=== PATIENT | female | born 1995 | race Caucasian/White ===

== ENCOUNTER 2021-11-04 15:34 | Outpatient (CLI) | payer OTHER, SELFPAY ==
--- NOTE | ~2021-11-04 | US_ITS ---
EXAMINATION: US OB <= 14 weeks fetus INDICATION: UNCERTAIN DATES TECHNIQUE: Sonography of the pelvis was performed by transabdominal techniques. COMPARISON: None. RESULT: Uterus: - Orientation: Anteverted - Size: #9 x 7.5 x 6.8 cm - Myometrium: homogeneous echogenicity Gestation: - Intrauterine gestational sac: Single present - Mean Sac Diameter: 4.56 cm, corresponding gestational age 10 week 1 days - Yolk sac: Not visualized - Embryo: Single present - [place] rump length: 4.16 cm, corresponding gestational age 11 weeks, 0 days -Gestational heart rate: present 167 bpm -Subgestational hematoma: Absent Right ovary: - Size : 2.2 x 1.7 x 1.4 cm - Normal sonographic appearance with physiologic follicles. Left ovary: -Not visualized Pelvis free fluid: None. IMPRESSION: Single, live intrauterine gestation. Estimated Gestational Age: 11 weeks, 0 days by crown rump length. Reviewed, dictated and finalized at location K.
== END 2021-11-04 15:35 | disposition home or self-care (01) ==
PROVIDERS: PCP Family Medicine; Visit Provider Obstetrics & Gynecology Gynecology
DX: Z36.87 Encounter for antenatal screening for uncertain dates (principal); Z3A.11 11 weeks gestation of pregnancy
CPT/HCPCS: 76801

== ENCOUNTER 2022-01-02 11:02 | Outpatient (CLI) | payer OTHER, SELFPAY ==
--- NOTE | ~2022-01-02 | US_ITS ---
US OB /maternal detail DATE: 01/02/2022 14:05 INDICATION: anatomy screen TECHNIQUE: Real-time imaging and Doppler analysis COMPARISON: 11/04/2021 obstetrical ultrasound FINDINGS: Live pickard intrauterine gestation, fetus in longitudinal lie, vertex presentation. Posterior placenta with lower margin 7.5 cm above the internal os. Subjectively normal amount of amni otic fluid. No cerebral ventriculomegaly. upper lip appears normal. cerebellum and cisterna mag na are normal. Normal nuchal fold. No abnormality of the spine is identified. Four-chamber heart with normal left and right ventricular outflow tracts. heart rate of 1 41 bpm. Three-vessel umbilical cord with normal insertion at the abdominal wall. The diaphragm is intact. Fluid is demonstrated in the stomach and urinary bladder. No hydronephrosis. Fet al extremities are unremarkable. Biparietal diameter 4.50 cm; 19 weeks 4 days Head circumference 16.89 cm; 19 weeks 4 days Abdominal circumference 13.94 cm; 18 weeks 2 days Femur length 2.93 cm; 19 weeks Composite age by Hadlock) is 19 weeks 3 days +/- 1 week 2 days, with CARMEN of 05/26/2022 Estimated weight is 281.7 +/- 42.2 g Estimated weight-GP: 27.5% Head circumference/abdominal plumbing mechanic was 1.21, within normal range of 1.08-1.26 Femur length/head circumference 17.37, within normal range of 16.40-18.94 IMPRESSION: Estimated gestational age of 19 weeks 3 days +/- 1 week 2 days, with CARMEN of 05/26/2022 Reviewed, dictated and finalized at Location A. Reviewed, dictated and finalized at location A. IMPRESSION: Estimated gestational age of 19 weeks 3 days +/- 1 week 2 days, wit h CARMEN of 05/26/2022
== END 2022-01-02 11:03 | disposition home or self-care (01) ==
PROVIDERS: PCP Family Medicine; Visit Provider Advanced Practice Midwife
DX: Z36.9 Encounter for antenatal screening, unspecified (principal); Z3A.19 19 weeks gestation of pregnancy
CPT/HCPCS: 76805

== ENCOUNTER → 2022-03-06 13:58 | Outpatient (CLI) | payer BC, SELFPAY ==
--- NOTE | ~2022-03-06 | US_ITS ---
EXAMINATION: US OB follow up DATE: 03/06/2022 14:39 INDICATION: Incomplete anatomic survey, third trimester TECHNIQUE: Real-time ultrasound of the pelvis was performed. The interpreting radiologist was not pre sent for the study. COMPARISON: 01/02/2022 FINDINGS: There is a single living fetus in vertex presentation. The placenta is posterior. car diac activity and movement are noted. heart rate is 172 beats per minute (bpm). The amnio tic fluid index is 15.7 cm which is normal (normal range: 9.4 cm to 21.9 cm). The kidneys are u nremarkable. The following biometric data were obtained: Biparietal diameter (BPD): 7.4 cm; head circumference (HC): 26.9 cm; abdominal circumference (AC): 24 cm; femur length (FL): 5.3 cm. These measurements are concordant. Estimated weight is 1217 g +/- 182 g, which correlates with the 30th percentile when 05/25/2022 is used as estimated date of delivery. As single measurements, these parameters are each equal to the following estimated gestational ages w ith ranges of +/- 2 standard deviations: BPD: 29 weeks 4 days ( 27 weeks 2 days - 31 weeks 5 days). HC: 29 weeks 2 days ( 27 weeks 2 days - 31 weeks 3 days). AC: 28 weeks 2 days ( 26 weeks 1 days - 30 weeks 3 days). FL: 28 weeks 0 days ( 26 weeks 0 days - 30 weeks 1 days). estimated gestational age based solely on measurements from this exam is 28 weeks 6 days +/- 2 weeks 0 days. IMPRESSION: 1. Single living fetus in vertex presentation. 2. Normal-appearing kidneys. 3. Estimated weight is 1217 g +/- 182 g, which correlates with the 30th percentile when 05/25/20 22 is used as estimated date of delivery. Reviewed, dictated and finalized at location A. IMPRESSION: 1. Single living fetus in vertex presentation. 2. Normal-appearing kidneys. 3. Estimated weight is 1217 g +/- 182 g, which correlates with the 30th p ercentile when 05/25/2022 is used as estimated date of delivery.
== END ==
PROVIDERS: PCP Obstetrics & Gynecology Gynecology; Visit Provider Obstetrics & Gynecology Gynecology
DX: Z36.2 Encounter for other antenatal screening follow-up (principal)
CPT/HCPCS: 76816

== ENCOUNTER → 2022-03-16 12:57 | Outpatient (CLI) | payer BC, SELFPAY ==
--- NOTE | ~2022-03-16 | US_ITS ---
EXAMINATION: US OB follow up, US umbilical doppler DATE: 03/17/2022 16:07 INDICATION: Third trimester post-COVID . Cholestasis. TECHNIQUE: Real-time ultrasound of the pelvis was performed. The interpreting radiologist was not pre sent for the study. COMPARISON: 03/06/2022 FINDINGS: There is a single living fetus in vertex presentation. The placenta is posterior. heart rate i s 140 beats per minute (bpm). The amniotic fluid index is 16.6 cm, which is normal (5th%-95%: 9.0-2 3.4 cm at 30 weeks estimated gestational age). The following biometric data were obtained: BPD: 7.8 cm -> 31 weeks 1 days Head circumference: 28.5 cm -> 31 weeks 2 days Abdominal circumference: 27.0 cm -> 31 weeks 1 days Femur length: 5.7 cm -> 30 weeks 0 days These measurements are concordant. Head circumference to abdominal circumference ratio: 1.05 (normal range 0.96-1.17). Estimated weight: 1636 g (+/-) 245 g or 3 lbs. 10 oz. (+/-) 9 oz. The umbilical artery demonstrates a peak systolic and diastolic velocity ratio of 2.6-3.3 at the fetu s, 2.3-3.1 in the mid cord and 3.0 near the placenta (5th%-95%: 2.26-4.14 at 30 weeks). IMPRESSION: 1. Single living fetus in vertex presentation with heart rate of 140 bpm. 2. Normal amniotic fluid index of 16.6 cm. 3. Normal umbilical artery peak systolic to diastolic velocity ratio is of 2.3 to 3.3. 4. Estimated weight is 65th percentile by Hadlock criteria when 05/25/2022 is used as the estima delmi date of delivery (CARMEN). Please correlate with clinical information or earlier ultrasounds for mos t accurate CARMEN. Reviewed, dictated and finalized at location A. IMPRESSION: 1. Single living fetus in vertex presentation with heart rate of 140 bpm. 2. Normal amniotic fluid index of 16.6 cm. 3. Normal umbilical artery peak systolic to diastolic velocity ratio is of 2.3 to 3.3. 4. Estimated weight is 65th percentile by Hadlock criteria when 05/25/2022 is used as the estimated date of delivery (CARMEN). Please correlate with clinica l information or earlier ultrasounds for most accurate CARMEN.
== END ==
PROVIDERS: PCP Obstetrics & Gynecology Gynecology; Visit Provider Obstetrics & Gynecology Gynecology
DX: Z34.93 Encounter for supervision of normal pregnancy, unspecified, third trimester (principal); Z3A.00 Weeks of gestation of pregnancy not specified; Z86.16 Personal history of COVID-19
CPT/HCPCS: 76816; 76820

== ENCOUNTER → 2022-04-20 10:56 | Outpatient (CLI) | payer OTHER, SELFPAY ==
--- NOTE | ~2022-04-20 | US_ITS ---
EXAMINATION: US OB follow up DATE: 04/20/2022 11:24 INDICATION: Estimated size greater than expected for estimated gestational age. TECHNIQUE: Real-time ultrasound of the pelvis was performed. The interpreting radiologist was not pre sent for the study. COMPARISON: None. FINDINGS: There is a single living fetus in vertex presentation. The placenta is posterior. heart rate i s 155 beats per minute (bpm). The amniotic fluid index is 14.4 cm, which is normal (5th%-95%: 7.9-24 .9 cm at 35 weeks estimated gestational age). The following biometric data were obtained: BPD: 9.1 cm -> 36 weeks 6 days Head circumference: 32.6 cm -> 36 weeks 6 days Abdominal circumference: 33.0 cm -> 37 weeks 0 days Femur length: 6.7 cm -> 34 weeks 4 days These measurements are concordant. Head circumference to abdominal circumference ratio: 0.99 (normal range 0.92-1.07). Estimated weight: 2909 g (+/-) 436 g or 6 lbs. 7 oz. (+/-) 15 oz. IMPRESSION: 1. Single living fetus in vertex presentation with heart rate of 155 bpm. 2. Normal amniotic fluid index measuring 14.4 cm. 3. Estimated weight is 83rd percentile by Hadlock criteria when 05/25/2022 is used as the estima delmi date of delivery (CARMEN). Please correlate with clinical information or earlier ultrasounds for mos t accurate CARMEN. Reviewed, dictated and finalized at location A. IMPRESSION: 1. Single living fetus in vertex presentation with heart rate of 155 bpm. 2. Normal amniotic fluid index measuring 14.4 cm. 3. Estimated weight is 83rd percentile by Hadlock criteria when 05/25/2022 is used as the estimated date of delivery (CARMEN). Please correlate with clinica l information or earlier ultrasounds for most accurate CARMEN.
== END ==
PROVIDERS: PCP Advanced Practice Midwife; Visit Provider Advanced Practice Midwife
DX: O36.63X0 Maternal care for excessive fetal growth, third trimester, not applicable or unspecified (principal); Z3A.00 Weeks of gestation of pregnancy not specified
CPT/HCPCS: 76816

== ENCOUNTER 2022-05-04 09:36 | Inpatient (IN) | payer OTHER, SELFPAY ==
[2022-05-04] VITALS (159 sets, daily range): BP systolic 97–163; BP diastolic 55–102; PULSE 73–152; TEMP 36.6–37.7; O2SAT 94–100
--- NOTE | 2022-05-04 09:36 | LDADM ---
This patient, Bessy Ayala, was admitted to Labor/Delivery/Recovery 104 on 05/04/22 at 09:36. Plans for labor, pain management and were discussed with patient. Patient/family oriented to hospital policies and general routines including ID bracelet, bed and alarms, visiting hours, pain management, procedures, bathroom and other care routines, personal items, smoking policy, room service/diet and guest tray routines, infant security routines, and visiting hours. Patient/Family are encouraged to report perceived risks to care and to ask questions if they do not understand what they are told or what they should do. See OBIX for further documentation.
[2022-05-04 10:11] LABS: Basophils Absolute Auto 0.1 K/mm3 (0.0-0.1); Basophils Percent Auto 0.5 % (0.2-1.2); Eosinophils Percent Auto 0.4 % (0-4.4); Hematocrit 36.9 % (37.0-47.0); Hemoglobin 12.6 g/dL (12.0-15.0); Immature Granulocyte Absolute 0.05 K/mm3 (0.00-0.031); Immature Granulocyte Percent A 0.5 % (0-0.5); Lymphocytes Percent Auto 17.5 % (18.3-44.2); Mean Corpuscular HGB Conc 34.1 g/dl (32-36); Mean Corpuscular Hemoglobin 28.9 pg (26-34); Mean Corpuscular Volume 84.6 fl (80-100); Mean Platelet Volume 10.4 fl (7.4-10.4); Monocytes Absolute Auto 0.7 K/mm3 (0.1-0.6); Monocytes Percent Auto 7.1 % (2.6-8.5); Neutrophils Absolute Auto 7.6 K/mm3 (1.3-6.7); Platelet Count Result 219 k/mm3 (150-375); Red Blood Count 4.36 M/mm3 (4.2-5.4); Red Cell Distribution Width 12.7 % (11.5-14.5); White Blood Count 10.3 K/mm3 (4.5-10.0)
[2022-05-04] MEDS: OXYTOCIN 30 UNITS/NS 500 ML 30 UNITS/500 ML BAG 6 UNITS IV CONT (10:36)
[2022-05-04] MEDS: LACTATED RINGERS 1,000 ML 125 ML IV CONT ×4 (10:36→16:18)
[2022-05-04] MEDS: AMPICILLIN 2 GM/NS 100 ML 2 GM/100 ML BAG IVPB (10:36)
--- NOTE | 2022-05-04 11:29 | WPDOBADMIT ---
Obstetrics - Admit Note Admission Note: record reviewed. No pertinent additions to the history and/or any subsequent changes in the physical findings that are not consistent with the expected course of the were found. Additions to the history and/or subsequent changes in the physical findings follow. Here at 37 wks for MIL secondary to cholestasis with elevated bile acids and LFTs. Cervix 1-2/50/-2 AROM with clear fluid. FHTs reactive. LFTs ordered.
[2022-05-04 11:57] LABS: Alanine Aminotransferase 111 U/L (6-35); Albumin Level 3.4 g/dL (3.5-5.1); Alkaline Phosphatase 244 U/L (38-126); Anion Gap 7 mmol/L (8-16); Aspartate Amino Transferase 61 U/L (14-36); Bilirubin,Total 0.4 mg/dL (0.2-1.3); Blood Urea Nitrogen 7 mg/dL (7-17); Calcium 8.9 mg/dL (8.4-10.2); Carbon Dioxide 20 mmol/L (22-30); Chloride 106 mmol/L (98-107); Estimated Glomerular Filt Rate > 60; Glucose 130 mg/dL (65-110); Potassium 3.6 mmol/L (3.4-5.0); Sodium 133 mmol/L (137-145)
[2022-05-04] MEDS: fentaNYL CITRATE INJ (*CRX) 100 MCG/2 ML VIAL 50 MCG IV PUSH (14:04)
[2022-05-04] MEDS: AMPICILLIN 1 GM/NS 50 ML 1 GM/50 ML BAG IVPB ×2 (14:10→18:28)
--- NOTE | 2022-05-04 17:41 | PM.OBPNLAB ---
Pain Control Date/time seen: 05/04/22 17:35 Pain control: tolerating well and epidural Contractions Monitor mode: Internal Contraction frequency: 2 (1.5-2.5) Contraction duration: 60 (60-80) Contraction pattern: Regular Status status: Category l Assessment and Plan Assessment: induction ongoing Plan: continuous present management Comments: Pt resting on her right side. Feels comfortable and very happy with epidural. Partner present and supportive. Ctx pattern adequate with IUPC. SVE about an hour ago revealed pt was 3.5cm. Exam deferred at this time. Recommend frequent position changes. Anticipate vaginal .
[2022-05-05] VITALS (229 sets, daily range): BP systolic 101–153; BP diastolic 46–106; PULSE 31–135; RESP 18; TEMP 36.6–37.7; O2SAT 79–100; BMI 33.5
[2022-05-05] MEDS: AMPICILLIN 1 GM/NS 50 ML 1 GM/50 ML BAG IVPB ×4 (00:15→12:45)
[2022-05-05] MEDS: CALCIUM CARBONATE (TUMS) 500 MG (200 MG ELEMENTAL) PO (00:15)
[2022-05-05] MEDS: LACTATED RINGERS 1,000 ML 125 ML IV CONT ×2 (00:43→07:26)
--- NOTE | 2022-05-05 07:59 | PM.OBPNLAB ---
Pain Control Date/time seen: 05/05/22 07:59 Pain control: tolerating well Pelvic Exam Dilation (cm): 5 Effacement (%): 80 station: -2 Contractions Monitor mode: Internal Contraction frequency: 2 (1.5-2.5) Contraction pattern: Regular Status status: Category l
[2022-05-05 08:56] LABS: Rapid Plasma Reagin Non-Reactive (NonReactive)
[2022-05-05] MEDS: OXYTOCIN 30 UNITS/NS 500 ML 30 UNITS/500 ML BAG 6 UNITS IV CONT (10:41)
--- NOTE | 2022-05-05 14:21 | PM.OBPRVD ---
OB - Delivery Note Procedure Delivery date: 05/05/22 Events: Other (cholestasis of ) Induction method: AROM and Per Pitocin Protocol Delivery monitor: External FHT and Internal Uterine Route of delivery: Laceration Description: Vaginal (B at 5 and 7 hymenal ring) Delivery repair: vicryl (3-0 ) Specimen: Yes (placenta) Quantitative Blood Loss (ml): 250 Anesthesia type: Epidural Disposition: Floor [place] Baby Date of : 05/05/22 Weeks of gestation at delivery: 37 gender: Male presentation: vertex position: Right Occiput Anterior Placenta delivery description: Spontaneous Cord Vessel Description: 3 Vessels and Nuchal Cord score one minute: 8 score five minutes: 8
--- NOTE | 2022-05-05 14:23 | PM.OBDSVD ---
DS: Admitting Diagnosis Discharge Date 05/06/22 Admitting Diagnosis IUP 37 wks cholestasis DS: Discharge Diagnosis Discharge Diagnosis (1) (normal spontaneous vaginal delivery): Code(s): O80 - Encounter for full-term uncomplicated delivery Status: Acute OB - DS: Summary Hospital Course Hospital Course: Uncomplicated OB Procedures : NST and Ultrasound OB Procedures Intrapartum: Spontaneous Vag Delivery OB Procedures: : None Peripartum Data Infant Delivery Method: Natural Vaginal Laceration Description: Vaginal - 1st Degree complications: none Status at Discharge Functional status at discharge: independent ambulation Overall status at discharge: patient is progressing back to baseline Time Spent with Patient Time attestation: Total time spent providing and/or coordinating discharge services: DS: Data Data Completed and Pending Labs on day of discharge: Labs from last 24 hours 05/04/22 10:06 RPR Non-reactive Discharge Plan Discharge Attending physician on discharge: Agata Velásquez Discharging Clinician: Flor Díaz Anticipated Discharge Date/Time: 05/07/22 14:24 Patient Disposition: Home, Self-Care Activity: may shower and pelvic rest Diet: regular Discharge Instructions: Education: Mom and Baby Guide Given to: Mother Follow-Up: Call your delivering provider's office for an appointment to be seen in: 6 Weeks Mom and baby [facility] for the follow-up appointment. Appointment Date/Time: May 07, 2022 at 11:30 am What to expect at your follow-up visit: Blood Pressure Check Physical Assessment Call [phone] if you are unable to keep your appointment time. BREAST CARE: * Wear a snug supportive bra. * For engorgement discomfort: Breast Feeding: * Apply warm moist washcloths * Express milk as needed to relieve engorgement * Wear loose clothing Bottle Feeding: * May apply ice packs * For sore nipples: * Identify correct latch-on * Apply warm moist washcloths before and after nursing * Air dry nipples after nursing * May apply Lansinoh cream to nipples EPISIOTOMY/PERINEAL CARE: * Until bleeding stops, use your boris bottle after urinating * Change your pad frequently throughout the day * You may take sitz baths several times a day (fill your bathtub with warm water and soak for 20 minutes.) Do NOT bathe in the water * No tub baths until seen by your physician - You may shower ACTIVITY: * Rest as much as possible. * Do not exercise or lift anything heavier than your baby (such as laundry or other children.) * Avoid stairs or driving as much as possible. * Do not put anything into the vagina. No douching, tampons, or sexual activity until seen by physician. NOTIFY PHYSICIAN IF YOU HAVE ANY QUESTIONS OR IF ANY OF THE FOLLOWING SYMPTOMS OCCUR: * If your episiotomy or incision becomes red, swollen, or more painful than what you have experienced in the hospital. * If your vaginal bleeding becomes foul smelling. * If your vaginal bleeding becomes more heavy than a period or if your bleeding changes from pink to bright red. However, you may pass an occasional walnut-sized clot once or twice for the first week . * If you experience a sharp, shooting pain in you calves. * If you discover a hard, reddened area on your breast or if you experience flu-like symptoms. DIET: * Eat regular, well-balanced meals. * Drink plenty of fluids daily. If , drink to thirst. Patient Instructions: Antibiotic Form Stand Alone Forms: General Discharge Information Follow-up/Referrals: Agata Velásquez MD [Physician] - 6 Weeks Discharge Medications: New docusate sodium 100 mg Capsule 100 mg PO BID PRN (Reason: Constipation) 30 Days Qty: 60 0RF ibuprofen 600 mg Tablet 600 mg PO Q6H PRN (R
[2022-05-05] MEDS: IBUPROFEN 600 MG TABLET PO ×2 (15:30→21:59)
--- NOTE | 2022-05-05 17:00 | PC.NURSE ---
Patient transferred to post room # via ( 710 ). Support person present. Oriented to unit, room, information board, rooming in, admission packet and security measures. Patient verbalizes understanding.
[2022-05-05] MEDS: ACETAMINOPHEN 325 MG TABLET 650 MG PO (17:17)
[2022-05-05] MEDS: DOCUSATE SODIUM 100 MG CAPSULE PO (17:19)
--- NOTE | 2022-05-05 17:34 | PHAR ---
DRUG NAME: URSODIOL INGREDIENTS: URSODIOL -- 500 MG RELATED DOCUMENTS: DRUGDEX EVALUATIONS - URSODIOL COLOR: WHITE TO OFF-WHITE SHAPE: OVAL IMPRINT: U 11 FORM: ORAL TABLET
[2022-05-06 01:50] VITALS: BP 120/89; PULSE 84; RESP 14; TEMP 36.7; O2SAT 97
[2022-05-06] MEDS: ACETAMINOPHEN 325 MG TABLET 650 MG PO ×2 (01:50→09:40)
[2022-05-06 04:50] VITALS: BP 124/88; PULSE 88; RESP 16; TEMP 36.7; O2SAT 96
[2022-05-06] MEDS: IBUPROFEN 600 MG TABLET PO ×2 (04:51→11:51)
[2022-05-06 05:16] LABS: Hematocrit 33.2 % (37.0-47.0)
--- NOTE | 2022-05-06 07:43 | WPDANLDPN2 ---
Anes-Prog Note L&D Date/Time: 05/06/22 07:43 Comfortable throughout: labor and delivery Neuraxial method: epidural Epidural/Spinal procedure site: clean & non-tender Neuro status: Neuro function grossly intact. Cardiovascular status: normal Respiratory status: normal Airway patency: baseline Mental status: baseline Post-Op hydration status: normal Vital Signs: Last Vital Signs Temp 36.7 C 05/06/22 04:50 Pulse 88 05/06/22 04:50 Resp 16 05/06/22 04:50 BP 124/88 05/06/22 04:50 Pulse Ox 96 05/06/22 04:50 O2 Del Method Room Air 05/05/22 19:20 Pain score (VAS): 2 I/O: Intake & Output 05/05/22 05/05/22 05/06/22 15:59 23:59 07:59 Intake Total 600 1980 Balance 600 1979 Post-procedural complaints: none Patient feedback: Patient satisfied with anesthetic care.
--- NOTE | 2022-05-06 07:53 | PM.OBPNVD ---
OB - PN: Subj Subjective Date/time seen: 05/06/22 07:53 Patient comments: no complaints and pain well controlled baby status: other (in nursery, supplemental O2 via NC) feeding status: pumping and storing OB - PN: Obj Data Labs CBC & Chem 7: 05/06/22 04:59 05/04/22 11:32 Labs: Laboratory Results - last 24 hr 05/04/22 05/06/22 10:06 04:59 Hgb 11.0 L Hct 33.2 L RPR Non-reactive OB - PN A/P Plan day: 1 Plan: routine care Comments: Bessy in nursery with . Discussed care. may be transferred today to NICU. If he is transferred, she would desire discharge from the hospital. Discussed normal post expectations, pumping, baby blues, depression, and when to notify provider. She is walking in halls without discomfort and has no dizziness. Time Spent With Patient Time: Total time spent is greater than 50% in coordination of care (as documented) at patient's floor/unit and/or counseling patient: Review of Systems Review of Systems: All systems reviewed & are unremarkable except as noted in HPI and below Exam Narrative: Alert and oriented. Mood is pleasant and cooperative. Urinating without difficulty. Denies passing any large clots. Perineum with minimal edema. Const: General: no acute distress and alert Orientation/consciousness: patient oriented x3 Limitations: no limitations Resp: Effort & Inspection: normal respiratory effort Auscultation: clear to auscultation bilaterally Cardio: Rate: regular rate GI: Inspection: normal to inspection Neuro: General: patient oriented x3 Extrem: General: normal to inspection Psych: Appearance: grossly normal Mental Status: mental status grossly normal Affect: normal affect Thought process: Normal thought process present
[2022-05-06 08:15] VITALS: BP 125/87; PULSE 96; RESP 16; TEMP 36.3; O2SAT 98
--- NOTE | 2022-05-06 09:37 | PC.NURSE ---
0820 - Primary RN reported is in level II and mother is pumping and plan to supplement with formula.
[2022-05-06] MEDS: DOCUSATE SODIUM 100 MG CAPSULE PO (09:40)
[2022-05-06] MEDS: MULTIVIT/MIN/PREN/FOL AC/IRON TABLET 1 TAB PO (09:40)
--- NOTE | 2022-05-06 11:25 | P.DS_ITS ---
DS: Admitting Diagnosis Discharge Date 05/06/22 Admitting Diagnosis Cholestasis of Induction of labor DS: Discharge Diagnosis Discharge Diagnosis (1) (normal spontaneous vaginal delivery): Code(s): O80 - Encounter for full-term uncomplicated delivery Status: Acute (2) At risk for ineffective : Code(s): Z91.89 - Other specified personal risk factors, not elsewhere classified Status: Acute DS: Summary Hospital Course Reason for hospitalization: Childbirth Hospital Course: Uncomplicated Status at Discharge Functional status at discharge: independent ambulation Time Spent with Patient Time attestation: Total time spent providing and/or coordinating discharge services: Exam Narrative: Alert and oriented. Mood is pleasant and cooperative. Urinating without difficulty. Denies passing any large clots. Perineum with minimal edema. Const: General: no acute distress Orientation/consciousness: patient oriented x3 Limitations: no limitations Resp: Effort & Inspection: normal respiratory effort Auscultation: clear to auscultation bilaterally Cardio: Rate: regular rate GI: Inspection: normal to inspection Neuro: General: patient oriented x3 Extrem: General: normal to inspection Psych: Appearance: grossly normal Mental Status: mental status grossly normal Affect: normal affect Thought process: Normal thought process pr esent DS: Data Data Completed and Pending Pending studies at discharge: Pending at discharge 05/05/22 15:43 Surgical [PTH] Routine Labs on day of discharge: Labs from last 24 hours 05/06/22 04:59 Hgb 11.0 L Hct 33.2 L Discharge Plan Discharge Attending physician on discharge: Agata Velásquez Discharging Clinician: Flor Díaz Anticipated Discharge Date/Time: 05/07/22 14:24 Patient Disposition: Home, Self-Care Activity: may shower and pelvic rest Diet: regular Patient Instructions: Antibiotic Form Stand Alone Forms: General Discharge Information Follow-up/Referrals: Agata Velásquez MD [Physician] - 6 Weeks Discharge Medications: New docusate sodium 100 mg Capsule 100 mg PO BID PRN (Reason: Constipation) 30 Days Qty: 60 0RF ibuprofen 600 mg Tablet 600 mg PO Q6H PRN (Reason: Cramping) 30 Days Qty: 45 0RF Continued #2 Tablet 1 tablet PO DAILY Discontinued ursodiol 500 mg Tablet 500 mg PO BID Date of admission: 10/17/22 09:36 Primary Care Provider: Flor Díaz Admitting Provider: Agata Velásquez Attending physician on admission: Agata Velásquez Condition: Stable
--- NOTE | 2022-05-06 11:28 | PM.OBDSVD ---
DS: Admitting Diagnosis Discharge Date 05/03/22 Admitting Diagnosis IUP at 37 weeks Depression/Anxiety Chlamydia infection during Psoriasis Hx Lap Sindhu Elevated one hour GTT DS: Discharge Diagnosis Discharge Diagnosis (1) At risk for ineffective : Code(s): Z91.89 - Other specified personal risk factors, not elsewhere classified Status: Acute Assessment and Plan: Pumping (2) (normal spontaneous vaginal delivery): Code(s): O80 - Encounter for full-term uncomplicated delivery Status: Acute Assessment and Plan: Healing well (3) Anxiety: Code(s): F41.9 - Anxiety disorder, unspecified Status: Acute (4) Depression: Code(s): F32.A - Depression, unspecified Status: Acute OB - DS: Summary Hospital Course Hospital Course: Uncomplicated OB Procedures : NST and Ultrasound OB Procedures Intrapartum: Spontaneous Vag Delivery OB Procedures: : None Peripartum Data Infant Delivery Method: Natural Vaginal Laceration Description: Vaginal - 1st Degree Episiotomy description: None complications: none Status at Discharge Functional status at discharge: independent ambulation Overall status at discharge: patient is progressing back to baseline Time Spent with Patient Time attestation: Total time spent providing and/or coordinating discharge services: Exam Narrative: Alert and oriented. Mood is pleasant and cooperative. Urinating without difficulty. Denies passing any large clots. Perineum with minimal edema. Const: General: no acute distress Orientation/consciousness: patient oriented x3 Limitations: no limitations Resp: Effort & Inspection: normal respiratory effort Auscultation: clear to auscultation bilaterally Cardio: Rate: regular rate GI: Inspection: normal to inspection Neuro: General: patient oriented x3 Extrem: General: normal to inspection Psych: Appearance: grossly normal Mental Status: mental status grossly normal Affect: normal affect Thought process: Normal thought process present DS: Data Data Completed and Pending Pending studies at discharge: Pending at discharge 05/05/22 15:43 Surgical [PTH] Routine Labs on day of discharge: Labs from last 24 hours 05/06/22 04:59 Hgb 11.0 L Hct 33.2 L Discharge Plan Discharge Attending physician on discharge: Agata Velásquez Discharging Clinician: Flor Díaz Anticipated Discharge Date/Time: 05/07/22 14:24 Patient Disposition: Home, Self-Care Activity: may shower and pelvic rest Diet: regular Discharge Instructions: Education: Mom and Baby Guide Given to: Mother Follow-Up: Call your delivering provider's office for an appointment to be seen in: 6 Weeks Mom and baby should come to the [facility] for the follow-up appointment. Appointment Date/Time: May 07, 2022 at 11:30 am What to expect at your follow-up visit: Blood Pressure Check Physical Assessment Call [phone] if you are unable to keep your appointment time. BREAST CARE: * Wear a snug supportive bra. * For engorgement discomfort: Breast Feeding: * Apply warm moist washcloths * Express milk as needed to relieve engorgement * Wear loose clothing Bottle Feeding: * May apply ice packs * For sore nipples: * Identify correct latch-on * Apply warm moist washcloths before and after nursing * Air dry nipples after nursing * May apply Lansinoh cream to nipples EPISIOTOMY/PERINEAL CARE: * Until bleeding stops, use your boris bottle after urinating * Change your pad frequently throughout the day * You may take sitz baths several times a day (fill your bathtub with warm water and soak for 20 minutes.) Do NOT bathe in the water * No tub baths until seen by your physician - You may shower ACTIVITY: * Rest as much as possible. *
[2022-05-06] MEDS: BENZOCAINE 20% AER SPR (*SP) 56 GM CAN 1 SPRAY TOPICAL (11:51)
[2022-05-06] MEDS: WITCH HAZEL 40 PADS 1 PAD TOPICAL (11:51)
[2022-05-06 11:53] VITALS: BP 126/89; PULSE 96; RESP 16; TEMP 36.3; O2SAT 98
== END 2022-05-06 12:15 | disposition home or self-care (01) | DRG 560 ==
LOC: ANHLDR 05-05 14:24 → ANHOB2 05-05 17:01
PROVIDERS: Admitting Provider Obstetrics & Gynecology Gynecology; PCP Advanced Practice Midwife; Visit Provider Obstetrics & Gynecology Gynecology
DX: O26.62 Liver and biliary tract disorders in childbirth (principal); K83.1 Obstruction of bile duct; O70.0 First degree perineal laceration during delivery; O69.81X0 Labor and delivery complicated by cord around neck, without compression, not applicable or unspecified; O99.824 Streptococcus B carrier state complicating childbirth; O42.92 Full-term premature rupture of membranes, unspecified as to length of time between rupture and onset of labor; O76 Abnormality in fetal heart rate and rhythm complicating labor and delivery; Z3A.37 37 weeks gestation of pregnancy; Z37.0 Single live birth
CPT/HCPCS: 36415; 80053; 85014; 85018; 85025; 86592; 86850; 86900; 86901; 88307; A9270; J0290; J2590; J2795; J3010; J7120

== ENCOUNTER 2023-05-12 12:06 | Emergency (ER) | payer OTHER, SELFPAY ==
[2023-05-12 12:21] VITALS: BP 128/86; PULSE 105; RESP 18; TEMP 37.1; O2SAT 97
--- NOTE | 2023-05-12 12:38 | ED.URI ---
HPI - URI/Sore Throat General Chief Complaint: Upper Respiratory Infection Stated Complaint: Cough,Sore Throat,Rt Ear Irritation Time Seen by Provider: 05/12/23 12:38 Source: patient Mode of arrival: ambulatory Limitations: no limitations History of Present Illness HPI Narrative: 28-year-old female, presents with complaint of nasal congestion, runny nose, sore throat, cough for 3 days. Afebrile. Reports pain to right ear starting today. Taking Advil to treat symptoms. No chest pain or shortness of breath. All systems reviewed and negative except as noted above. Related Data Home Medications Medication Instructions Recorded Confirmed etonogestrel 68 mg subdermal See Rx Instructions .Route .COMPLEX 05/12/23 05/12/23 implant (Nexplanon) fluoxetine 20 mg capsule 20 mg PO DAILY 05/12/23 05/12/23 Allergies Allergy/AdvReac Type Severity Reaction Status Date / Time No Known Allergies Allergy Verified 05/12/23 12:20 Review of Systems Review of Systems: CONSTITUTIONAL: Denies fever, chills, or sweats. EYES: Denies visual changes, redness, or discharge. ENT: Reports rhinorrhea, congestion, sore throat, right ear pain. CARDIOVASCULAR: Denies chest pain, palpitations, or edema. RESPIRATORY: Reports cough. Denies dyspnea. GASTROINTESTINAL: Denies abdominal pain, nausea, vomiting, or diarrhea. GENITOURINARY: Denies dysuria or hematuria. SKIN: Denies rash or itching. MUSCULOSKELETAL: Denies back pain, joint pain, or myalgia. NEUROLOGIC: Denies headache, numbness, or weakness. PSYCHIATRIC: Denies anxiety or depression. All other systems reviewed are negative, except as documented in HPI. PMFSH Family History Family History (Updated 04/27/22 @ 13:39 by Julien Tidwell RN) Mother Primary cancer of bone marrow Arthritis Leukemia Chronic obstructive pulmonary disease Heart attack Grandparent Liver cancer Father Alcoholic Other Patient's mother is Social History Social History Smoking status: Never smoker Substance use: never Spiritual care concerns: No Comments At time of signature, agree with nursing past medical, surgical, social and family history. There is no relevant family history pertinent to the presenting complaint. Exam Narrative: GENERAL: This is a well-nourished, well-developed patient, in no apparent distress. HEAD: normocephalic, atraumatic. EYES: PERRL. Sclera clear/white. Vision is grossly intact. EARS: External ears normal, auditory canals clear and without drainage, erythema, retracted, yellow fluid to right TM. Left TM is normal. Hearing grossly intact. NOSE: External nose normal with Clear nasal drainage, mild erythema to bilateral nares. THROAT: Mucous membranes moist, posterior pharynx clear. NECK: Neck supple, non-tender without lymphadenopathy, masses or thyromegaly. CARDIOVASCULAR: Regular rate and rhythm without murmurs, gallops, or rubs. RESPIRATORY: Clear to auscultation. Breath sounds equal bilaterally. No wheezes, rales, or rhonchi. SKIN: warm, Dry, intact with no suspicious lesions or rash, good texture and turgor. NEURO: awake, alert, and oriented to person, place and time. There were no obvious focal neurologic abnormalities. EXTREMITIES: No joint tenderness, effusion, or edema noted. Course Course Level of Care: Express Care Visit Vital Signs Vital signs: Vital Signs Temperature 37.1 C 05/12/23 12:21 Pulse Rate 105 H 05/12/23 12:21 Respiratory Rate 18 05/12/23 12:21 Blood Pressure 128/86 05/12/23 12:21 Pulse Oximetry 97 05/12/23 12:21 Oxygen Delivery Room Air 05/12/23 12:21 Temperature 37.1 C 05/12/23 12:21 Pulse Rate 105 H 05/12/23 12:21 Respiratory Rate 18 05/12/23 12:21 Blood Pressure 128/86 05/12/23 12:21 Pulse Oximetry 97 05/12/23 12:21 Oxygen Delivery Room Air 05/12/23 12:21 Reviewed MDM - URI/Sore Throat MDM Narrative Medical decision making narrative: Macy
== END 2023-05-12 12:54 | disposition home or self-care (01) ==
PROVIDERS: Emergency Provider Nurse Practitioner Family
DX: J06.9 Acute upper respiratory infection, unspecified (principal); R05.9 Cough, unspecified; H66.91 Otitis media, unspecified, right ear; F41.9 Anxiety disorder, unspecified; F32.A Depression, unspecified; L40.9 Psoriasis, unspecified
CPT/HCPCS: 87081; 87880; 99213; G0463

== ENCOUNTER 2023-08-08 08:37 | Emergency (ER) | payer OTHER, SELFPAY ==
[2023-08-08] VITALS (14 sets, daily range): BP systolic 120–135; BP diastolic 79–98; PULSE 98–124; RESP 11–24; TEMP 37; O2SAT 95–100
--- NOTE | ~2023-08-08 | CT_ITS ---
EXAMINATION: CTA chest PE protocol DATE: 08/08/2023 10:21 INDICATION: Dyspnea. Tachycardia. Elevated d-dimer. TECHNIQUE: Computed tomography angiography (CTA) of the chest was performed with 100 mL Omnipaque-350 intravenous contrast timed to evaluate the pulmonary arteries. Coronal maximum intensity projection 3D-reconstructions were created by the technologist. Automated exposure control and iterative reconst ruction technique were employed. Exam dose: 806.51 mGy-cm total exam DLP. COMPARISON: 07/01/2022 PA chest FINDINGS: There is diagnostic contrast enhancement of the pulmonary arteries and no evidence of pulmo nary embolism. No thoracic aortic aneurysm or dissection. No hilar or mediastinal mass lesion or lymphadenopathy. Normal heart size. No pericardial or pleural effusion. Minimal discoid atelectasis or scarring at the lingula. The lungs are clear of infiltrate or consolid ation. Status post cholecystectomy. Hepatic steatosis. Normal morphology of the adrenal glands. Included skeletal structures are unremarkable. IMPRESSION: No evidence of pulmonary embolism Reviewed, dictated and finalized at [facility]. Reviewed, dictated and finalized at [facility]. [facility]
--- NOTE | 2023-08-08 08:51 | ECG_ITS ---
Measurements Intervals [place] Rate: 106 P: 63 [place]: 134 QRS: 39 QRSD: 82 T: 16 QT: 317 QTc: 423 Interpretive Statements SINUS TACHYCARDIA BORDERLINE T WAVE ABNORMALITY- INFERIOR LEADS BASELINE ARTIFACT- I, III, AVL, AVF, V1-V3 ABNORMAL ECG NO PREVIOUS ECG AVAILABLE FOR COMPARISON Electronically Signed On 08-08-2023 14:24:19 [employer] by Jose E Alvarez D.O.
[2023-08-08 09:03] LABS: Hematocrit 46.5 % (37.0-47.0); Immature Platelet Fraction Pct 6.3 % (0.9-11.2); Mean Corpuscular HGB Conc 32.3 g/dl (32-36); Mean Corpuscular Hemoglobin 26.5 pg (26-34); Mean Corpuscular Volume 82.2 fl (80-100); Mean Platelet Volume 10.6 fl (7.4-10.4); Platelet Count Result 135 k/mm3 (150-375); Red Blood Count 5.66 M/mm3 (4.2-5.4); Red Cell Distribution Width 14.3 % (11.5-14.5); White Blood Count 6.5 K/mm3 (4.5-10.0)
[2023-08-08 09:15] LABS: Alanine Aminotransferase 129 U/L (6-35); Alkaline Phosphatase 102 U/L (38-126); Anion Gap 8 mmol/L (8-16); Aspartate Amino Transferase 93 U/L (14-36); Blood Urea Nitrogen 5 mg/dL (7-17); Calcium 8.7 mg/dL (8.4-10.2); Carbon Dioxide 31 mmol/L (22-30); Chloride 98 mmol/L (98-107); Estimated CRCL calculation 100 ml/min; Estimated Glomerular Filt Rate > 60; Glucose 143 mg/dL (65-110); Potassium 3.1 mmol/L (3.4-5.0); Sodium 137 mmol/L (137-145)
[2023-08-08 09:30] LABS: Appearance Urine Cloudy (Clear); Bacteria Urine Rare /hpf; Bilirubin Urine Negative (Negative); Blood Urine 3+ (Negative); Color Urine Dark Yellow (Yellow); Glucose Urine UA Negative (Negative); Ketones Urine Negative (Negative); Leukocyte Esterase Ur Trace LEU/UL (Negative); Nitrate Urine Negative (Negative); Non Pathogenic Casts 0-2; Protein Urine 1+ mg/dL (Negative); Specific Grav Ur 1.011 (1.001-1.035); Squamous Epithelial Cell Urine Moderate /hpf (Few)
[2023-08-08] MEDS: LACTATED RINGERS 1,000 ML 999 ML IV CONT (09:30)
[2023-08-08 09:32] LABS: Basophils Absolute Manual 0.06 K/mm3 (0.0-0.1); Basophils Percent Manual 1 % (0-1); Eosinophils Absolute Manual 0.06 K/mm3 (0.02-0.5); Eosinophils Percent Manual 1 % (0-4); Lymphocytes Percent Manual 57 % (18-44); Monocytes Absolute Manual 0.13 K/mm3 (0.1-0.90); Monocytes Percent Manual 2 % (3-9); Neutrophils Percent Manual 39 % (46-73)
[2023-08-08 09:33] LABS: Atypical Lymphocytes Present; Platelet Estimate Adequate (Adequate); Schistocytes None Seen (NORMAL)
[2023-08-08 09:34] LABS: Add Urine Microscopic? YES
[2023-08-08] MEDS: POTASSIUM CHLORIDE 20 MEQ ER TABLET 40 MEQ PO (09:40)
[2023-08-08 09:50] LABS: Lipase 160 U/L (23-300)
[2023-08-08 09:56] LABS: D Dimer 1.76 ug/mL (<0.48)
--- NOTE | 2023-08-08 10:11 | ED.GENADULT ---
HPI - General Adult General Chief complaint: Unspecified Stated complaint: INT HIGH HEART RATE Time Seen by Provider: 08/08/23 08:52 History of Present Illness HPI narrative: patient presenting with multiple vague symptoms for the last few weeks after having been on a weight loss/ stimulant medication prescribed by her doctor, this includes sensation of palpitations, mild nausea, fatigue, shortness of breath. Also increased thirst and darker urine. she did stop taking that medication. No abdominal pain. No vaginal discharge. Related Data Home Medications Medication Instructions Recorded Confirmed etonogestrel 68 mg subdermal See Rx Instructions .Route .COMPLEX 05/12/23 05/12/23 implant (Nexplanon) fluoxetine 20 mg capsule 20 mg PO DAILY 05/12/23 05/12/23 Allergies Allergy/AdvReac Type Severity Reaction Status Date / Time No Known Allergies Allergy Verified 08/08/23 08:47 Review of Systems Review of Systems: CONST: No fever. HEENT: No sore throat C/V: palpitations RESP: No cough GI: Nausea : dark urine M/S: No joint pain. SKIN: No rash. NEURO: [No headache or focal numbness or weakness] PSYCH: [No depression] [facility] Family History Family History (Updated 04/27/22 @ 13:39 by Julien Tidwell RN) Mother Primary cancer of bone marrow Arthritis Leukemia Chronic obstructive pulmonary disease Heart attack Grandparent Liver cancer Father Alcoholic Other Patient's mother is Social History Social History Smoking status: Never smoker Substance use: never Spiritual care concerns: No Exam Narrative: EXAMINATION OF ORGAN SYSTEMS/BODY AREAS: Constitutional: Vital signs per nursing GENERAL:[No acute distress, non-toxic appearing.] HEAD: Normal with no signs of head trauma. EYES: EOMI, conjunctiva normal ENT: Hearing grossly intact LUNGS: Nonlabored breathing. HEART: tachycardic ABD: [Soft], [nontender to palpation] EXT: Normal range of motion SKIN: [No rashes or lesions.] NEURO: [Alert and oriented x 3. No gross focal sensory or strength deficits.] PSYCH: Normal affect Course Vital Signs Vital signs: Vital Signs Respiratory Rate 16 08/08/23 08:48 Pulse Oximetry 100 08/08/23 08:48 Temperature 98.6 F 08/08/23 08:59 Pulse Rate 118 H 08/08/23 09:00 Respiratory Rate 18 08/08/23 08:59 Blood Pressure 135/98 H 08/08/23 08:59 Pulse Oximetry 97 08/08/23 08:59 Medical Decision Making MDM Narrative Medical decision making narrative: Patient with history of anxiety presenting here with a week of palpitations, vague nausea, recent course of a weight loss medication. On exam patient is [tachycardic but otherwise very well appearing, resting comfortably, ambulating normally]. I will obtain EKG and chest xray to rule out arrhythmia/ischemia, pneumothorax, or other cause of chest discomfort/shortness of breath. will also obtain other labs to rule out pulmonary embolism, thyroid dysfunction, infection. EKG - 12-Lead: Performed at 0854. Interpreted by me. [Sinus rhythm]. Rate 106. [Normal] axis. IA-interval [normal]. QRS duration [normal]. QTc [normal]. [No ST segment elevation or depression]. [T-wave normal]. Impression: No EKG evidence of acute ischemia or dysrhythmia. IV fluids given. On reevaluation patient is feeling better, resting comfortably, vital signs now stable; Heart rate 97 on telemetry. I do feel patient is stable for discharge home at this time with followup to their doctor, and return here if symptoms return or worsen. Agreeable to outpatient management. Vital Signs Vital Signs: Vital Signs Respiratory Rate 16 08/08/23 08:48 Pulse Oximetry 100 08/08/23 08:48 Temperature 98.6 F 08/08/23 08:59 Pulse Rate 118 H 08/08/23 09:00 Respiratory Rate 18 08/08/23 08:59 Blood Pressure 135/98 H 08/08/23 08:59 Pulse Oximetry 97 08/08/23 08:59 Lab Data 08/08/23 08:56
[2023-08-08 11:01] LABS: Free T4 Free Thyroxine Reflex 1.31 ng/dL (0.78-2.19)
[2023-08-08 12:15] LABS: Total Triiodothyronine (T3) 1.43 NG/ML (0.97-1.69)
== END 2023-08-08 10:57 | disposition home or self-care (01) ==
PROVIDERS: Emergency Provider Emergency Medicine
DX: R00.2 Palpitations (principal); F41.9 Anxiety disorder, unspecified; R00.0 Tachycardia, unspecified; R94.31 Abnormal electrocardiogram [ECG] [EKG]
CPT/HCPCS: 36415; 71275; 80053; 81001; 81025; 83690; 84439; 84443; 84480; 85025; 85055; 85380; 87086; 87088; 93005; 96360; 99284; A9270; J7120; Q9967